=== PATIENT | female | born 1970 | race African-American/Black ===

== ENCOUNTER → 2021-01-02 | Outpatient (CLI) | payer BC ==
[2016-03-16 13:14] VITALS: BP 178/110
[~2021-01-02] MED LIST: FURO40TA4 PO; GUAI118L20; LOSA100T14 PO; LOSA1TAB22; SULF-143 PO; TRAM50TA PO; TRIA15OI
--- NOTE | 2021-01-03 15:52 | CARD ---
MR#: [id number] Date of Study: 01/02/2021 Ordering Physician: ROSENDA JACKSON, Referring Physician: ROSENDA JACKSON, Tech: Xochitl Singletary [facility] APPROVED REPORT EXAM: Two-dimensional and M-mode echocardiogram with Doppler and color Doppler. Other Information Quality : Fair Rhythm : NSR INDICATION Dyspnea Preo-op evaluation RISK FACTORS Hypertension Obesity 2D DIMENSIONS RVDd2.4 (2.9-3.5cm)Left Atrium(2D)3.5 (1.6-4.0cm) IVSd1.4 (0.7-1.1cm)Aortic Root(2D)3.8 (2.0-3.7cm) LVDd4.6 (3.9-5.9cm)LVOT Diameter2.1 (1.8-2.4cm) PWd1.4 (0.7-1.1cm)LVDs3.3 (2.5-4.0cm) FS (%) 29.0 %SV54.2 ml LVEF(%)55.7 (>50%) Aortic Valve AoV Peak Breezy.136.8cm/sAoV VTI29.2cm AO Peak GR.7.5mmHgLVOT Peak Breezy.109.2cm/s AO Mean GR.4mmHgAVA (VMAX)2.64cm2 Mitral Valve MV E Tpolbcpo02.9cm/sMV DECEL LFUI263yn MV A Okvmpwyg53.1cm/sE/A Ratio0.8 Pulmonary Valve PV Peak Trudokbg906.7cm/s LEFT VENTRICLE The left ventricle is normal size. There is mild concentric left ventricular hypertrophy. The left ve ntricular systolic function is normal. Estimated ejection fraction 60-65%. There is normal LV segmen wagner wall motion. The left ventricular diastolic function and filling is normal for age. RIGHT VENTRICLE The right ventricle is normal size. There is normal right ventricular wall thickness. The right ventr icular systolic function is normal. ATRIA The left atrium size is normal. The right atrium size is normal. The interatrial septum is intact wit h no evidence for an atrial septal defect or patent foramen ovale as noted on 2-D or Doppler imaging. AORTIC VALVE The aortic valve is normal in structure and function. Doppler and Color Flow revealed no significant aortic regurgitation. There is no significant aortic valvular stenosis. MITRAL VALVE The mitral valve is normal in structure and function. There is no evidence of mitral valve prolapse. There is no mitral valve stenosis. Doppler and Color Flow revealed no mitral valve regurgitation note d. TRICUSPID VALVE The tricuspid valve is normal in structure and function. Doppler and Color Flow revealed no tricuspid valve regurgitation noted. There is no tricuspid valve stenosis. PULMONIC VALVE The pulmonary valve is normal in structure and function. Doppler and Color Flow revealed no pulmonic valvular regurgitation. GREAT VESSELS The aortic root is mildly enlarged. The IVC is normal in size and collapses >50% with inspiration. PERICARDIAL EFFUSION There is no evidence of significant pericardial effusion. Critical Notification Critical Value: No <Conclusion> The left ventricular systolic function is normal. Estimated ejection fraction 60-65%. There is normal LV segmental wall motion. There is no evidence of significant pericardial effusion. Signed by : Eric Curry, Electronically Approved : 01/03/2021 15:52:10
== END ==
LOC: ECHO 14:58
PROVIDERS: ATTEND Internal Medicine
DX: I26.99 Other pulmonary embolism without acute cor pulmonale (principal); I27.20 Pulmonary hypertension, unspecified
CPT/HCPCS: 93306